=== PATIENT | female | born 1970 | race American Indian/Alaskan Native ===

== ENCOUNTER 2021-03-31 15:27 | Outpatient (CLI) | payer BC ==
[2021-03-31 16:09] LABS: Basophils % (Auto) 0.5 % (0.0-1.8); Eosinophils # (Auto) 0.1 K/mm3 (0.0-0.4); Eosinophils % (Auto) 1.5 % (0.0-4.3); Hematocrit 29.5 % (30.3-42.9); Hemoglobin 9.3 gm/dl (10.1-14.3); Lymphocytes # (Auto) 1.7 K/mm3 (1.2-5.4); Lymphocytes % (Auto) 34.4 % (13.4-35.0); Mean Corpuscular HGB Conc 32 % (30-34); Mean Corpuscular Volume 83 fl (79-97); Monocytes # (Auto) 0.5 K/mm3 (0.0-0.8); Monocytes % (Auto) 10.4 % (0.0-7.3); Platelet Count 263 K/mm3 (140-440); Red Blood Count 3.53 M/mm3 (3.65-5.03)
[2021-03-31 16:27] LABS: Alanine Aminotransferase 10 units/L (7-56); Albumin 3.9 g/dL (3.9-5); Blood Urea Nitrogen 17 mg/dL (7-17); Hemolysis Index 10
[2021-03-31 16:31] LABS: Erythrocyte Sedimentation Rate 31 mm/Hr (0-20)
[2021-03-31 17:02] LABS: BUN/Creatinine Ratio 24
== END 2021-03-31 15:28 | disposition home or self-care (01) ==
LOC: LAB 15:27
PROVIDERS: ATTEND Specialist
DX: G61.9 Inflammatory polyneuropathy, unspecified (principal)
CPT/HCPCS: 36415; 80053; 82306; 82607; 83036; 83921; 84443; 85025; 85652; 86038; 86225; 86334; 86431; 86592; 87476